=== PATIENT | female | born 1955 | race Caucasian/White ===

== ENCOUNTER 2017-04-28 14:56 | Outpatient (CLI) | payer OTHER ==
--- NOTE | 2017-04-29 09:09 | MMO ---
BILATERAL DIGITAL SCREENING MAMMOGRAMS: Date: 04/28/2017 HISTORY: A 61-year-old female presents for digital screening mammography. The patient gives a history of havi ng prior mammograms over 10 years old which was not available so this will be treated as a baseline s tudy. FINDINGS: This patient's mammogram was interpreted with the assistance of computer-aided detection. There is an occasional typically benign calcification. No direct or indirect evidence of malignancy. IMPRESSION: BIRADS 2: Benign Finding(s) Continue routine screening. POS: [facility]
== END 2017-04-28 14:57 | disposition home or self-care (01) ==
LOC: SCSMAMMO 14:56
PROVIDERS: ATTEND Family Medicine
DX: Z12.31 Encounter for screening mammogram for malignant neoplasm of breast (principal)
CPT/HCPCS: 77067

== ENCOUNTER 2017-12-25 06:26 | Day surgery (SDC) | payer OTHER ==
[2017-12-24 12:48] VITALS: BMI 38.9
--- NOTE | 2017-12-25 05:19 | HP ---
SHORT STAY HISTORY AND PHYSICAL DATE OF ADMISSION: 12/25/2017 HISTORY OF PRESENT ILLNESS: This is a 62-year-old, female comes for a colonoscopy for colo n cancer screening. The patient has no abdominal pain. No rectal bleeding. She does have history o f constipation and does strain to stool. The patient has no other relevant symptoms. ALLERGIES: None. SOCIAL HISTORY: The patient is a smoker. She smokes a packet of cigarettes per day. No alcohol int domonique. MEDICAL ILLNESSES: 1. COPD. 2. Hypertension. 3. Hyperlipidemia. 4. Diabetes. 5. Depression. 6. Hysterectomy. 7. Cataracts, both eyes. PHYSICAL EXAMINATION: VITAL SIGNS: Her pulse is 74, blood pressure is 110/70, weight is 210 pounds. HEENT: Conjunctivae clear. CARDIOVASCULAR SYSTEM: First and second heart sounds normal. LUNGS: Clear to auscultation. ABDOMEN: Abdomen is soft to palpate. No organomegaly. No tenderness. No masses. ADMITTING DIAGNOSIS: A 62-year-old female comes for a colonoscopy for cancer screening.
[2017-12-25] MEDS ORDERED: PROPOFOL 200 MG/20 ML VIAL ONE (10:16)
--- NOTE | 2017-12-25 11:22 | OP ---
DATE OF PROCEDURE: 12/25/2017 SURGEON: Rosa Brar M.D. OPERATIVE PROCEDURE: Colonoscopy with polypectomy. PREOPERATIVE DIAGNOSIS: A 62-year-old female undergoing colonoscopy for colon cancer cuca orellana. POSTOPERATIVE DIAGNOSES: 1. Sessile polyp ascending colon, status post snare cautery with good hemostasis. 2. Retained stool throughout the colon which could not be completely cleaned out. 3. Sigmoid diverticular disease. 4. Hemorrhoids. PROCEDURE IN DETAIL: The patient was placed on her left lateral position and was given sedation by A nesthesia Department. A rectal exam was done before the scope was advanced into the rectum. No lesi on felt on rectal exam. A Pentax video colonoscope was introduced into the rectum and advanced all t he way into the cecum. The quality of prep was not very good. The patient retained pockets of stool in the sigmoid colon all the way to the cecum. Water was irrigated and extensively washed out. How ever, the colon could not completely clean out. The ileocecal area, cecum, no pathology seen. The a scending colon had a sessile polyp. This was removed with snare cautery with good hemostasis. The t ransverse colon, splenic flexure, and descending colon, no pathology seen. The sigmoid colon showed scattered diverticula. Rectum showed hemorrhoids. DISCHARGE PLANNING AND PLAN: This is a 62-year-old female who came for colonoscopy for col on cancer screening. She underwent a polypectomy. However, the quality of prep was really not good. She had a polyp taken out from the ascending colon area. DISCHARGE RECOMMENDATIONS: 1. The patient was advised to call me if she develops abdominal pain or hematochezia. 2. In the absence of any of the above symptoms she will come back to see me next week. 3. We will plan repeat colonoscopy in 1 year.
== END 2017-12-25 09:45 | disposition home or self-care (01) ==
LOC: SDC 06:26
PROVIDERS: ATTEND Internal Medicine Gastroenterology
PROC: 0DBK8ZX Excision of Ascending Colon, Via Natural or Artificial Opening Endoscopic, Diagnostic (ICD-10-PCS; principal; 2017-12-25)
DX: Z12.11 Encounter for screening for malignant neoplasm of colon (principal); D12.2 Benign neoplasm of ascending colon; J44.9 Chronic obstructive pulmonary disease, unspecified; I10 Essential (primary) hypertension; E78.5 Hyperlipidemia, unspecified; E11.9 Type 2 diabetes mellitus without complications; F17.210 Nicotine dependence, cigarettes, uncomplicated; K57.90 Diverticulosis of intestine, part unspecified, without perforation or abscess without bleeding; K64.8 Other hemorrhoids; Z79.82 Long term (current) use of aspirin; Z79.899 Other long term (current) drug therapy; Z79.84 Long term (current) use of oral hypoglycemic drugs
CPT/HCPCS: 88305; J2704

== ENCOUNTER 2018-03-17 14:51 | Outpatient (CLI) | payer OTHER ==
--- NOTE | 2018-03-17 17:24 | MRI ---
LUMBAR SPINE MRI NONCONTRAST: 03/17/18 INDICATION: Facet arthritis in lumbar region. Low back pain. FINDINGS: There is a mild chronic compression deformity of L1 and of L5. No acute narrow edema. Conus medullari s terminates at L1 level. There is multilevel bilateral moderate facet hypertrophy. L5-S1: Disc osteophyte complex present without significant ----- of the thecal sac. There is mild yana rowing of the left subarticular zone with crowding of the traversing left S1 nerve root. No high grad e foraminal stenosis. L4-5: There is a broad based disc osteophyte with moderate to severe central canal stenosis, and mild bilateral neural foraminal narrowing. L3-4: Mild central canal narrowing due to broad based disc osteophyte. No high grade foraminal stenos is. L2-3: Mild effacement of ventral thecal sac due to disc osteophyte. No high grade foraminal stenosis. L1-2: No significant compromise of central canal or neural foraminal stenosis. Disc osteophyte result s in mild effacement of ventral thecal sac. T12-L1 level demonstrates a mild disc osteophyte with slight effacement of ventral thecal sac. IMPRESSION: Multilevel degenerative change of the lumbar spine as outlined above. Chronic mild compression deformities of L1 and L5. POS: [facility]
== END 2018-03-17 14:52 | disposition home or self-care (01) ==
LOC: BICMRI 14:51
PROVIDERS: ATTEND Family Medicine
DX: S32.059A Unspecified fracture of fifth lumbar vertebra, initial encounter for closed fracture (principal); M47.26 Other spondylosis with radiculopathy, lumbar region; M46.96 Unspecified inflammatory spondylopathy, lumbar region; M43.9 Deforming dorsopathy, unspecified
CPT/HCPCS: 72148

== ENCOUNTER 2018-08-17 13:53 | Outpatient (CLI) | payer MEDICARE ==
--- NOTE | 2018-08-17 14:24 | RAD ---
Right leg 2 views: HISTORY: Right leg pain FINDINGS: The right tibia and fibula are intact.
--- NOTE | 2018-08-17 14:42 | RAD ---
3 views right foot: 08/17/2018 COMPARISON: None HISTORY: Right foot pain FINDINGS: There is abnormal flattening of the head of the second metatarsal with advanced degenerativ e change at the second metatarsal phalangeal joint including joint space narrowing and prominent osteophyte formation. No acute fracture or evidence of dislocation is appreciated. There is prominent enthesophyte formation at the insertion of the Achilles tendon and the origin of the plantar aponeurosis. There is dorsal soft tissue swelling overlying the midfoot. 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 Dorsal midfoot soft tissue swelling. Prominent calcaneal spurring.
== END 2018-08-17 13:54 | disposition home or self-care (01) ==
LOC: RAD 13:53
PROVIDERS: ATTEND Nurse Practitioner Family
DX: M79.671 Pain in right foot (principal); M79.604 Pain in right leg; M19.071 Primary osteoarthritis, right ankle and foot; M77.31 Calcaneal spur, right foot; M79.89 Other specified soft tissue disorders

== ENCOUNTER 2018-08-19 12:50 | Outpatient (CLI) | payer MEDICARE ==
--- NOTE | 2018-08-19 15:04 | ULT ---
ULTRASOUND WITH DOPPLER DUPLEX VENOUS LOWER EXTREMITY RIGHT: HISTORY: Right lower extremity pain and swelling in a 63-year-old female. TECHNIQUE: Color flow Doppler, spectral waveform analysis of pulsed Doppler, and jeter-scale imaging with crystal christopher and augmentation, were used to evaluate the right common femoral, femoral, popliteal, posterior tibial, and superficial femoral, veins; and the proximal portions of the profunda femoral and greater saphenous, veins. FINDINGS: There is normal compressibility, demonstration of blood flow by color Doppler and pulsed Doppler, and response to augmentation, in all interrogated veins. There is soft tissue edema adjacent to the pos terior tibial vein at the ankle. IMPRESSION: 1. No deep vein thrombosis in the right lower extremity. 2. Soft tissue edema in the distal right leg. eda Riggs POS: CHRIS
== END 2018-08-19 12:51 | disposition home or self-care (01) ==
LOC: SCSULT 12:50
PROVIDERS: ATTEND Nurse Practitioner Family
DX: M79.604 Pain in right leg (principal); M79.89 Other specified soft tissue disorders

== ENCOUNTER 2019-11-20 12:44 | Observation (INO) | payer MEDICARE, OTHER ==
[~2019-11-20 12:44] MED LIST: Iopamidol-370 76% 500 ML 1 ML ONE
[2019-11-20 14:09] LABS: Actual Bicarbonate (HCO3a) 26.7 mEq/L (22-28); Analyzer IN Cardio ER; Base Excess (BEa) -0.9 mEq/L (-2.0 to +3.0); CO2 Tension 56.7 mmHg (35.0-45.0); Calcium, Ionized (arterial) 1.21 mmol/L (1.12-1.30); Carboxyhemoglobin (COHb) 1.6 gm% (0.0-3.0); Hemoglobin (Hb) 13.4 g/dL (12.0-16.0); Potassium - ABG Lab 4.86 mmol/L (3.70-5.30); pH, Arterial 7.29 (7.35-7.45)
[2019-11-20 14:17] LABS: O2 Tension (PaO2), arterial 57.6 mmHg (> 80.0); Puncture Site RRAD
[2019-11-20 15:39] LABS: SARS-CoV-2 NAA Rapid Test Not Detected (NotDetected)
--- NOTE | 2019-11-20 16:35 | HP ---
PRIMARY CARE PHYSICIAN: Unknown, out of town. CHIEF COMPLAINT: Altered mental status. HISTORY OF PRESENT ILLNESS: The patient is a pleasant 64-year-old female, who has significant past medical history of hypertension, dyslipidemia, diabetes type 2, on oral antidiabetic medication, COPD, home O2 dependent 3 L, who was transferred from an outside facility in [facility] for altered mental status. It is reported by family members that she was not wearing her oxygen last night, and this morning, she was confused, not herself, her oxygen saturation was in the 60s. EMS was called. Her oxygenation improved after placed her on oxygen. She reports that she had an upper respiratory tract infection with some congestion. She denies any fevers. No history of COVID exposures or recent travel history. Unfortunately, the patient is still smoking 2 packs a day. Initial workup in the ED, including chest x-ray showed interstitial infiltrate to the left lower and right lower lobe. CT head showed a hypodensity in the medial aspect of the left lentiform nucleus, may represent indeterminate lacunar infarcts, measured up to 0.5 cm. Given her confusion and CT findings, the patient was subsequently transferred to [place] for further stroke workup. By the time I evaluated the patient, she is alert and oriented x2. She had some intermittent confusion, however, she answered all her questions appropriately. There is no focal weakness on exam. In the ED, the patient was given breathing treatments, and started on empiric IV antibiotic with azithromycin and Rocephin, IV fluid hydrations, and 60 mg of prednisone. PAST MEDICAL HISTORY: 1. Diabetes type 2. 2. COPD, home O2 dependence, 3 L. 3. Hypertension. 4. Dyslipidemia. PAST SURGICAL HISTORY: Hysterectomy and cataract removal. FAMILY HISTORY: The patient denies any family history of CAD. SOCIAL HISTORY: The patient still smokes 2 packs a day. REVIEW OF SYSTEMS: Complete review of systems has been assessed and discussed with the patient. Negative and positive pertinent symptoms noted in HPI. Otherwise, complete review of systems had been reviewed and negative. ALLERGIES: NO KNOWN DRUG ALLERGIES. LABORATORY DATA: WBC 8.1, hemoglobin 12.2, hematocrit 40.4, and platelets 198. Chemistry; sodium 144, potassium 4.4, chloride is 107, carbon dioxide 28, anion gap 13, BUN 32, creatinine is 1.12, AST 19, ALT 23, glucose 167. Lactic acid 0.9. Troponins less than 0.01. BNP 37.9. VBG; pH of 7.28, CO2 of 64, O2 of 61, bicarb 30. EKG; sinus tach with a ventricular rate of 101, no ST elevations or T-wave inversions noted. I have reviewed external medical record. HOME MEDICATIONS: 1. Metformin 1000 mg 1 tablet b.i.d. 2. Glipizide 5 mg 1 tablet daily. 3. Lipitor 80 mg p.o. 1 tablet daily. 4. Lisinopril 20 mg p.o. daily. 5. Meloxicam 15 mg p.o. daily. 6. Gabapentin 600 mg t.i.d. 7. Aspirin 81 mg p.o. daily. 8. ProAir 90 mcg inhale q.4. PHYSICAL EXAMINATION: VITAL SIGNS: Blood pressure is 158/70, pulse 99, respiratory rate 16, and saturating 92% on 3 L. GENERAL APPEARANCE: The patient is alert and oriented x2, not in acute distress. HEENT: Normocephalic, atraumatic. Mucous membranes moist. NECK: Supple. No lymphadenopathy. No JVD. CARDIOVASCULAR: Regular rate and rhythm. S1 and S2 noted. No murmurs. PULMONOLOGY: Clear to auscultation bilaterally. ABDOMEN: Soft, nontender, nondistended. Positive bowel sounds. EXTREMITIES: No edema. NEUROLOGIC: The patient is somewhat confused on exam. No focal weakness. Cranial nerves 2 through 12 grossly intact. PSYCHIATRIC: The patient is alert and oriented x2. Normal affect, with intermittent confusions. ASSESSMENT AND PLAN: This is a pleasant 64-year-old female with significant past medical history of chronic obstructive pulmonary disease, on home O2, hypertension, diabetes, dyslipidemia, who was transferred from outside facility hospital for altered mental status, the patient was found hypoxic. 1. Altered mental status. I suspect that she may have subacute CVA. UA was negative. Chest x-ray shows bilateral infiltrates. We will admit the patient to [facility] for further stroke workup including MRI, carotid Dopplers, 2D echo. Continue with neuro checks every 4 hours. ABGs show mild CO2 retention, however, I doubt this attributes to her confusion. I suspect she probably had an underlying baseline hypercapnia. We will continue her low-dose aspirin and statin therapy. 2. Chronic obstructive pulmonary disease with mild exacerbation. Chest x-ray shows bilateral pneumonia based on report. Images are not available to review. We will continue with breathing treatments, we will hold off systemic steroids for now. Start Pulmicort nebs. Continue with empiric antibiotic. Given the finding of bilateral infiltrates on report, we will repeat chest x-ray as well as check COVID PCR. 3. Pneumonia, bilateral infiltrates noted on chest x-ray report. We will continue with current empiric IV antibiotics with azithromycin and Rocephin empirically for community-acquired pneumonia. Continue breathing treatments as mentioned above. Wean O2 as tolerated. 4. Diabetes type 2. We will hold her metformin for now, in case further contrast study is needed. We will place her on sliding scale. Check hemoglobin A1c. 5. Dyslipidemia, continue Lipitor. Check fasting lipid panel. 6. Hypertension. Blood pressure appears to be slightly elevated. We will continue home medication and monitor. 7. Deep venous thrombosis prophylaxis. Start her on SCD. 8. Gastrointestinal prophylaxis, not indicated. Thank you for allowing us to participate in this patient's care. Job ID: [id number] [facility]
[2019-11-20] MEDS ORDERED: Senokot S 8.6-50 MG TAB PO PRN (16:44)
[2019-11-20] MEDS ORDERED: hydrALAZINE 20 MG/ML VIAL SLOW IVP PRN (16:44)
[2019-11-20] MEDS ORDERED: Insulin Regular 300 UNITS/3 ML VIAL SC PRN (16:44)
[2019-11-20] MEDS ORDERED: Acetaminophen 325 MG TAB PO PRN (16:44)
--- NOTE | 2019-11-20 18:20 | RAD ---
TWO VIEWS CHEST: Date: 11-20-2019 PROVIDED CLINICAL HISTORY: Pneumonia FINDINGS: Comparison 11-20-2019 at 8:28 a.m. The cardiac silhouette remains enlarged. Vascular calcification is seen involving the aortic arch. Th ere is nonspecific prominence of the pulmonary interstitium. There is no pleural fluid or pneumothora x apparent. IMPRESSION: 1. Cardiomegaly and atherosclerosis. 2. Nonspecific prominence of the pulmonary interstitium. POS: B[facility]
--- NOTE | 2019-11-20 18:27 | CT ---
CT ANGIOGRAM GREAT VESSELS NECK WITH IV CONTRAST AND 3D MIP RECONSTRUCTIONS CT ANGIOGRAM BRAIN WITH IV CONTRAST AND 3D MIP RECONSTRUCTIONS: PROVIDED CLINICAL HISTORY: Altered mental status. FINDINGS: Noncontrast brain CT was performed initially and is compared with the examination performed earlier s miriam date. The ventricular system remains normal in size and morphology. There is no evidence for intr acranial hemorrhage or mass effect. Age indeterminate lacunar infarctions are seen from the left lent iform nuclei. Extracranial soft tissues and osseous structures appear unremarkable. CT angiogram brain demonstrates no evidence for focal vessel stenosis, branch occlusion, or aneurysm. CT angiogram neck demonstrates scattered atherosclerotic vascular calcification including at the orig ins of the vertebral arteries as well as at the left carotid bulb/proximal ICA region. There is no ev idence for a hemodynamically significant stenosis. Prominent by number but not pathologically enlarged jugular lymph nodes are seen bilaterally. The oss eous structures demonstrate no concerning lytic or blastic lesions. Cervical spine degenerative strange es are demonstrated. IMPRESSION: 1. No evidence for intracranial hemorrhage or mass effect. Age indeterminate lacunar infarctions invo lving the left basal ganglia. 2. Normal CT angiogram brain. 3. No evidence for a hemodynamically significant stenosis involving the great vessels of the heck. POS: BERNICE
[2019-11-20 20:01] VITALS: BMI 40.3
[2019-11-20] MEDS ORDERED: Atorvastatin Calcium 40 MG TAB PO SCH (21:00)
[2019-11-20] MEDS: Nicotine 14 MG PATCH TD SCH (21:13)
[2019-11-20] MEDS ORDERED: HumaLOG 300 UNITS/3 ML VIAL SC PRN (22:49)
[2019-11-20] MEDS ORDERED: Dextrose 5% in Water 1,000 ML IV PRN (22:49)
[2019-11-20] MEDS ORDERED: Dextrose 50% Abboject 50 ML SYRINGE SLOW IVP PRN (22:49)
[2019-11-21 05:50] LABS: #Eosinphils 0.1 thou/uL (0.0-0.7); #Lymphocytes 3.5 thou/uL (1.20-3.40); #Monocytes 0.9 thou/uL (0.11-0.59); #Neutrophils 3.6 thou/uL (1.40-6.50); %Basophils 0.5 % (0.0-1.0); %Eosinophils 0.7 % (0.0-10.0); %Monocytes 11.6 % (0.0-10.0); %Neutrophils 44.2 % (42.0-75.0); Hemoglobin 12.1 g/dL (12.0-16.0); Mean Corpuscular HGB CONC 33.3 g/dL (32.0-36.0); Mean Corpuscular Hemoglobin 32.8 pg (27.0-31.0); Mean Corpuscular Volume 98.4 fL (78.0-98.0); Mean Platelet Volume 8.3 fL (7.4-10.4); Platelet Count 237 thou/uL (130-400); RBC Distribution Width 12.8 % (11.5-14.5); Red Blood Cell (RBC) Count 3.68 mill/uL (4.20-5.40); White Blood Cell (WBC) Count 8.1 thou/uL (4.8-10.8)
[2019-11-21 06:00] LABS: INR-International Normal Ratio 0.9; Prothrombin Time 12.5 sec (12.0-14.7)
[2019-11-21 06:14] LABS: Anion Gap 10 mmol/L (10-20); BUN (Urea Nitrogen) 26 mg/dL (9.8-20.1); Calc. Creatinine Clearance 90 mL/min (70-130); Carbon Dioxide 31 mmol/L (23-31); Cardiac Risk 5.5 (Less than 4.5); Chloride 104 mmol/L (98-107); Cholesterol 159 mg/dl (< 200 Desired); Estimated GFR-MDRD 53; Glucose 163 mg/dL (80-115); HDL Cholesterol 29 mg/dL (>60 Neg Risk); LDL Cholesterol, Calculated 79 mg/dL; Potassium 3.9 mmol/L (3.5-5.1); Sodium 141 mmol/L (136-145); Triglycerides 254 mg/dL (Less than 150)
[2019-11-21] MEDS ORDERED: Aspirin 81 mg Enteric Coated Tablet PO SCH (09:00)
[2019-11-21] MEDS ORDERED: Enoxaparin Sodium 40 MG/0.4 ML SYRINGE SC SCH (09:00)
[2019-11-21] MEDS ORDERED: Azithromycin 500 MG in Sodium Chloride 0.9% 250 ML 250 ML IVPB SCH (10:00)
--- NOTE | 2019-11-21 10:51 | MRI ---
MRI OF BRAIN WITHOUT CONTRAST: INDICATION: Altered mental status. Question stroke. COMPARISON: Correlation is made to CT of 11/20/2019. FINDINGS: Ventricles have normal size and position. There is no evidence of restricted diffusion. There are m oderate chronic ischemic white matter changes. No mass or edema. There are chronic ischemic changes in the brainstem. IMPRESSION: Mild to moderate chronic ischemic changes as described. No evidence of acute infract. POS: AH
[2019-11-21] MEDS ORDERED: cefTRIAXone\\ROCEPHIN 2 GM in Sodium Chloride 0.9% 100 ML IVPB SCH (11:00)
[2019-11-21 11:55] VITALS: TEMP 98.1
[2019-11-21 15:12] VITALS: BP 157/69
--- NOTE | 2019-11-21 17:05 | DIS ---
DATE OF ADMISSION: 11/20/2019 DATE OF DISCHARGE: 11/21/2019 DISCHARGE DIAGNOSES: 1. Altered mental status, likely secondary to hypoxia. Stroke ruled out. 2. Chronic obstructive pulmonary disease. 3. Possible pneumonia. 4. Diabetes type 2. 5. Hypertension. 6. Morbid obesity with body mass index of 40. CONSULTATION: None. IMAGING STUDY: MRI was negative for acute infarct. Rhqr-[id number] chronic ischemic changes. CTA of head and neck showed no evidence of intracranial hemorrhage. No mass effect. Age indeterminate lacunar infarct involving the left basal ganglia. A normal CT angiogram of the brain, no evidence of hemodynamically significant stenosis involving the great vessels of the neck. Chest x-ray, cardiomegaly, atherosclerosis disease, nonspecific prominent pulmonary interstitium. HISTORY OF PRESENT ILLNESS AND BRIEF HOSPITAL COURSE: The patient is a pleasant 64-year-old female, who has significant past medical histories of hypertension, dyslipidemia, diabetes type 2, COPD, on home O2 of 3 L, continuous , who was transferred from outside facility in [facility] for altered mental status. This was reported by family members. The patient did not wear her oxygen last night, and this morning, she woke up, confused, and not herself. Her oxygen saturation was in the 60. She was brought into the ED for further evaluation. Initial workup including CT head, showed possible age indeterminate lacunar infarct as well as chest x-ray showed possible interstitial infiltrate. For that reason , the patient was subsequently transferred to [facility] for further stroke workup. The patient underwent CTA of head and neck, as well as MRI of the brain, which was negative for acute CVA or large vessel disease. We also started her on empiric antibiotics given chest x-ray finding. However, we repeated a chest x-ray here , it was negative. She does not have any symptoms suggestive of pneumonia. Her COVID test was negative. She had no white count. No fever. Altered mental status is likely secondary to prolonged hypoxia. Mentation is back to her baseline. There was no evidence of infection anywhere else. Her UA was negative based on the records obtained from the outside facility. She is tolerating diet. At this point, her symptom has resolved and back to her baseline. She is stable to discharge home. DISPOSITION: The patient is stable to discharge home with family. ACTIVITY: As tolerated. DIET: Diabetic diet. LABORATORY DATA: Chemistry; sodium 141, potassium 3.9, chloride 104, carbon dioxide 31, BUN 26, creatinine is 1.04, and glucose 163. LDL is 79. CBC; WBC of 8.1, hemoglobin 12.1, hematocrit 36.2, and platelets 12.8. COVID PCR nondetected. PHYSICAL EXAMINATION: VITAL SIGNS: Temperature is 98.1, pulse 80s, respiratory rate 18, she is saturating at 95% on 3 L via nasal cannula, and blood pressure 157/69. GENERAL: The patient is alert and oriented x3. No acute distress. HEENT: Normocephalic and atraumatic. Mucous membranes are moist. NECK: Supple. No lymphadenopathy. No JVD. CARDIOVASCULAR: Regular rate and rhythm. S1 and S2 noted. No murmur. PULMONOLOGY: Clear to auscultation bilaterally. ABDOMEN: Soft, nontender, and nondistended. Positive bowel sounds. EXTREMITIES: No edema. NEUROLOGIC: Cranial nerves 2 through 12 are grossly intact. No focal weakness. PSYCHIATRIC: The patient is alert and oriented x3 with normal affect. DISCHARGE MEDICATIONS: The patient will resume her regular home medications include: 1. Albuterol inhaler 90 mcg inhalers q.4 p.r.n. for wheezing. 2. Aspirin 81 mg p.o. daily. 3. Lipitor 80 mg at bedtime. 4. Carvedilol 25 mg b.i.d. 5. Gabapentin 600 mg t.i.d. 6. Glipizide 5 mg p.o. daily. 7. Mucinex 1200 mg p.o. daily. 8. Lisinopril 20 mg p.o. daily. 9. Meloxicam 50 mg p.o. daily. 10. Metformin 1000 mg b.i.d. 11. Multivitamin one tablet p.o. daily. FOLLOWUP CARE: 1. The patient was advised to follow up with her PCP in 1 to 2 weeks. 2. The patient was advised to take her medication as prescribed, adherence to her oxygen supplement. The patient was advised to return to ED if her symptom recurs or worsen. Thank you for allowing us to participate in this patient's care. Job ID: [id number] [id number]
[2019-11-21] MEDS: Nicotine 14 MG PATCH TD SCH (17:47)
== END 2019-11-21 17:55 | disposition home or self-care (01) ==
LOC: ERS 12:44 → 2SE 15:25
PROVIDERS: ADMIT Family Medicine; ATTEND Family Medicine
DX: R41.82 Altered mental status, unspecified (principal); J44.1 Chronic obstructive pulmonary disease with (acute) exacerbation; J18.9 Pneumonia, unspecified organism; E11.9 Type 2 diabetes mellitus without complications; E78.5 Hyperlipidemia, unspecified; I10 Essential (primary) hypertension; J44.9 Chronic obstructive pulmonary disease, unspecified; F17.210 Nicotine dependence, cigarettes, uncomplicated; E66.01 Morbid (severe) obesity due to excess calories; Z68.41 Body mass index [BMI] 40.0-44.9, adult; Z79.82 Long term (current) use of aspirin; Z79.84 Long term (current) use of oral hypoglycemic drugs; Z79.899 Other long term (current) drug therapy; Z20.828 Contact with and (suspected) exposure to other viral communicable diseases
CPT/HCPCS: 70496; 70498; 70551; 71046; 80048; 80061; 82805; 82962 ×2; 85025; 85610; 93005; 93306; 97116; 97139 ×4; 99285; U0002; 36415; 36416; 96372; 96374; 96375; G0378; J0456; J0696; J1650; J1815; J3490; J7050; Q9967

== ENCOUNTER 2020-06-07 11:24 | Outpatient (CLI) | payer MEDICARE | END 2020-06-07 11:25 | disposition home or self-care (01) | LOC: BICMAMMO 11:24 | PROVIDERS: ATTEND Nurse Practitioner | DX: Z12.31 Encounter for screening mammogram for malignant neoplasm of breast (principal) | CPT/HCPCS: 77063; 77067 ==

== ENCOUNTER 2021-02-11 10:03 | Outpatient (CLI) | payer MEDICARE | END 2021-02-11 10:04 | disposition home or self-care (01) | LOC: BICULT 10:03 | PROVIDERS: ATTEND Specialist | DX: M79.89 Other specified soft tissue disorders (principal) ==

== ENCOUNTER 2021-07-31 07:43 | Outpatient (CLI) | payer OTHER | END 2021-07-31 07:44 | disposition home or self-care (01) | LOC: BICCT 07:43 | PROVIDERS: ATTEND Nurse Practitioner | DX: I71.4 Abdominal aortic aneurysm, without rupture (principal); M47.819 Spondylosis without myelopathy or radiculopathy, site unspecified; M43.8X6 Other specified deforming dorsopathies, lumbar region | CPT/HCPCS: 74175; 82565 ==

== ENCOUNTER 2021-08-13 10:13 | Emergency (ER) | payer MEDICARE ==
[2021-08-13 11:03] LABS: #Basophils 0.1 thou/uL (0.0-0.2); #Eosinphils 0.2 thou/uL (0.0-0.7); #Monocytes 0.8 thou/uL (0.11-0.59); #Neutrophils 6.4 thou/uL (1.40-6.50); %Basophils 0.9 % (0.0-1.0); %Eosinophils 2.1 % (0.0-10.0); %Lymphocytes 28.2 % (21.0-51.0); %Monocytes 7.9 % (0.0-10.0); %Neutrophils 60.9 % (42.0-75.0); Hemoglobin 13.8 g/dL (12.0-16.0); Mean Corpuscular HGB CONC 32.4 g/dL (32.0-36.0); Mean Corpuscular Hemoglobin 33.6 pg (27.0-31.0); Mean Platelet Volume 7.4 fL (7.4-10.4); Platelet Count 225 thou/uL (130-400); RBC Distribution Width 12.3 % (11.5-14.5); Red Blood Cell (RBC) Count 4.11 mill/uL (4.20-5.40); White Blood Cell (WBC) Count 10.5 thou/uL (4.8-10.8)
[2021-08-13] MEDS ORDERED: Acetaminophen 500 MG TAB ONE (11:04)
[2021-08-13 11:22] LABS: ALT (SGPT) 21 U/L (8-55); AST (SGOT) 19 U/L (5-34); Albumin 3.8 g/dL (3.4-4.8); Alkaline Phosphatase 97 U/L (40-110); Anion Gap 15 mmol/L (10-20); BUN (Urea Nitrogen) 25 mg/dL (9.8-20.1); Bilirubin, Total 0.3 mg/dL (0.2-1.2); Calc. Creatinine Clearance 0 mL/min (70-130); Carbon Dioxide 26 mmol/L (23-31); Chloride 100 mmol/L (98-107); Globulin 3.3 g/dL (2.4-3.5); Glucose 192 mg/dL (80-115); Potassium 5.4 mmol/L (3.5-5.1); Protein, Total 7.1 g/dL (5.8-8.1); Sodium 136 mmol/L (136-145)
[2021-08-13] MEDS ORDERED: Lidocaine 1% PF 5 ML VIAL ONE (11:23)
== END 2021-08-13 15:35 | disposition home or self-care (01) ==
LOC: ERS 10:13
DX: S01.01XA Laceration without foreign body of scalp, initial encounter (principal); M54.9 Dorsalgia, unspecified; I10 Essential (primary) hypertension; E11.9 Type 2 diabetes mellitus without complications; E78.5 Hyperlipidemia, unspecified; J44.9 Chronic obstructive pulmonary disease, unspecified; F17.210 Nicotine dependence, cigarettes, uncomplicated; W18.00XA Striking against unspecified object with subsequent fall, initial encounter; Y92.000 Kitchen of unspecified non-institutional (private) residence as the place of occurrence of the external cause
CPT/HCPCS: 12002; 36415; 70450; 71045; 72100; 72125; 72170; 80053; 84484; 85025; 93005

== ENCOUNTER 2022-05-29 11:29 | Outpatient (CLI) | payer OTHER | END 2022-05-29 11:30 | disposition home or self-care (01) | LOC: ULT 11:29 | PROVIDERS: ATTEND Internal Medicine Nephrology | DX: I12.9 Hypertensive chronic kidney disease with stage 1 through stage 4 chronic kidney disease, or unspecified chronic kidney disease (principal); N18.4 Chronic kidney disease, stage 4 (severe) | CPT/HCPCS: 76770; 93975 ==

== ENCOUNTER 2023-01-01 09:26 | Outpatient (CLI) | payer OTHER | END 2023-01-01 09:27 | disposition home or self-care (01) | LOC: ULT 09:26 | PROVIDERS: ATTEND Nurse Practitioner | DX: I71.43 Infrarenal abdominal aortic aneurysm, without rupture (principal) | CPT/HCPCS: 76775 ==

== ENCOUNTER 2023-08-18 11:45 | Outpatient (CLI) | payer OTHER | END 2023-08-18 11:46 | disposition home or self-care (01) | LOC: PET 11:45 | PROVIDERS: ATTEND Internal Medicine Critical Care Medicine | DX: R59.0 Localized enlarged lymph nodes (principal); J43.2 Centrilobular emphysema | CPT/HCPCS: 78815; A9552 ==

== ENCOUNTER 2023-09-14 08:25 | Day surgery (SDC) | payer OTHER ==
[2023-09-11 09:38] VITALS: BMI 40.7
[2023-09-14 10:28] LABS: #Basophils 0.03 10x3/uL (0.0-0.2); %Basophils 0.3 % (0.0-1.0); %Eosinophils 2.7 % (0.0-10.0); %Lymphocytes 36.7 % (21.0-51.0); %Monocytes 12.4 % (0.0-10.0); %Neutrophils 47.6 % (42.0-75.0); Hematocrit 34.7 % (36.0-47.0); Hemoglobin 11.4 g/dL (12.0-16.0); Mean Corpuscular HGB CONC 32.9 g/dL (32.0-36.0); Mean Corpuscular Hemoglobin 32.5 pg (27.0-31.0); Mean Corpuscular Volume 98.9 fL (78.0-98.0); Platelet Count 247 10x3/uL (130-400); RBC Distribution Width 13.1 % (11.5-14.5); Red Blood Cell (RBC) Count 3.51 mill/uL (4.20-5.40)
[2023-09-14] MEDS ORDERED: PROPOFOL 20 ML ONE (11:24)
[2023-09-14] MEDS ORDERED: Midazolam HCl 2 mg/2 ml Vial ONE (11:24)
[2023-09-14] MEDS ORDERED: fentaNYL PF 100 MCG/2 ML SYRINGE ONE (11:24)
[2023-09-14 11:52] LABS: Anion Gap 13 mmol/L (10-20); BUN (Urea Nitrogen) 52 mg/dL (9.8-20.1); Calc. Creatinine Clearance 58 mL/min (70-130); Calcium 9.4 mg/dL (7.8-10.44); Carbon Dioxide 29 mmol/L (23-31); Chloride 106 mmol/L (98-107); Estimated GFR 38; Glucose 164 mg/dL (80-115); Potassium 4.5 mmol/L (3.5-5.1); Sodium 143 mmol/L (136-145)
[2023-09-14] MEDS ORDERED: Ondansetron PF 4 MG/2 ML Vial ONE (11:55)
[2023-09-14] MEDS ORDERED: Dexamethasone 20 MG/5 ML VIAL ONE (11:55)
[2023-09-14] MEDS ORDERED: Lidocaine 1% PF 5 ML VIAL ONE (11:55)
[2023-09-14] MEDS ORDERED: Rocuronium Bromide 10 MG/ML (10ML VIAL) ONE (11:55)
[2023-09-14] MEDS ORDERED: SUGAMMADEX SODIUM 200 MG/2 ML VIAL ONE (13:03)
[2023-09-18 16:15] LABS: Fungus Stain Final report (.)
== END 2023-09-14 16:38 | disposition home or self-care (01) ==
LOC: SDC 08:25
PROVIDERS: ATTEND Internal Medicine
PROC: 0BB68ZX Excision of Right Lower Lobe Bronchus, Via Natural or Artificial Opening Endoscopic, Diagnostic (ICD-10-PCS; principal; 2023-09-14)
PROC: 0B9F8ZX Drainage of Right Lower Lung Lobe, Via Natural or Artificial Opening Endoscopic, Diagnostic (ICD-10-PCS; 2023-09-14)
PROC: 0BD68ZX Extraction of Right Lower Lobe Bronchus, Via Natural or Artificial Opening Endoscopic, Diagnostic (ICD-10-PCS; 2023-09-14)
DX: D14.31 Benign neoplasm of right bronchus and lung (principal); R59.0 Localized enlarged lymph nodes; J42 Unspecified chronic bronchitis; R91.1 Solitary pulmonary nodule; I13.2 Hypertensive heart and chronic kidney disease with heart failure and with stage 5 chronic kidney disease, or end stage renal disease; N18.6 End stage renal disease; I50.9 Heart failure, unspecified; E78.5 Hyperlipidemia, unspecified; E11.9 Type 2 diabetes mellitus without complications; J44.9 Chronic obstructive pulmonary disease, unspecified; R09.02 Hypoxemia; I71.40 Abdominal aortic aneurysm, without rupture, unspecified; Z86.16 Personal history of COVID-19; Z98.890 Other specified postprocedural states; Z90.710 Acquired absence of both cervix and uterus; Z87.891 Personal history of nicotine dependence; Z79.899 Other long term (current) drug therapy; Z79.51 Long term (current) use of inhaled steroids; Z88.5 Allergy status to narcotic agent
CPT/HCPCS: 31624; 31625; 31652; 80048; 85025; 87070 ×2; 87075; 87102; 87116; 87205; 87206 ×2; 93005; J1100; J2250; J2405; J2704; 88112; 88172; 88173; 88177; 88305; 93010

== ENCOUNTER 2023-12-17 13:12 | Outpatient (CLI) | payer OTHER | END 2023-12-17 13:13 | disposition home or self-care (01) | LOC: BICCT 13:12 | PROVIDERS: ATTEND Internal Medicine Critical Care Medicine | DX: R59.0 Localized enlarged lymph nodes (principal) | CPT/HCPCS: 36415; 71250; 82565 ==

== ENCOUNTER 2024-03-10 12:23 | Outpatient (CLI) | payer OTHER | END 2024-03-10 12:24 | disposition home or self-care (01) | LOC: BICCT 12:23 | PROVIDERS: ATTEND Internal Medicine Critical Care Medicine | DX: R59.0 Localized enlarged lymph nodes (principal); J43.9 Emphysema, unspecified; R91.8 Other nonspecific abnormal finding of lung field | CPT/HCPCS: 36415; 71260; 82565 ==